=== PATIENT | male | born 1995 ===

== ENCOUNTER 2018-05-01 23:41 | Emergency (ER) | payer MEDICAID ==
[2018-05-01 23:46] VITALS: BP 146/86
--- NOTE | 2018-05-02 00:19 | EDPHY ---
H & P Stated Complaint: FLU LIKE SX FOR PAST DAY, WITH DIARRHEA Time Seen by Provider: 05/01/18 23:48 HPI/ROS: HPI The patient presents with diarrhea which has been present for the last 2 days. He has had loose stools throughout the day yesterday and today. These are nonbloody. He thought they were related to drinking alcohol because 2 nights ago he drink heavily. He complains of diffuse muscle aches which began today after playing about 8 hr of video games. He felt that he had a hard time catching his breath as well and when he breathes in his chest felt like it was burning. He does not have any shortness of breath currently. He does not have any chest pain or coughing. REVIEW OF SYSTEMS 10 systems were reviewed and negative with the exception of the elements mentioned in the history of present illness. PMHx: Healthy Soc Hx: Previous history of vaping which he has stopped over the last 3 weeks, here with his girlfriend PHYSICAL General Appearance: Alert, no distress Eyes: Pupils equal and round no pallor or injection ENT, Mouth: Mucous membranes moist Respiratory: There are no retractions, lungs are clear to auscultation Cardiovascular: Regular rate and rhythm Gastrointestinal: Abdomen is soft and non-tender, no masses, bowel sounds normal Neurological: A&O, moves all extremities Skin: Warm and dry, no rashes Musculoskeletal: Neck is supple non tender Extremities: symmetrical, full range of motion Psychiatric: Patient is oriented X 3, there is no agitation Source: Patient Exam Limitations: No limitations - Personal History Current Tetanus/Diphtheria Vaccine: Yes Current Tetanus Diphtheria and Acellular Pertussis (TDAP): Yes - Medical/Surgical History Hx Asthma: No Hx Chronic Respiratory Disease: No Hx Diabetes: No Hx Cardiac Disease: No Hx Renal Disease: No Hx Cirrhosis: No Hx Alcoholism: No Hx HIV/AIDS: No - Social History Smoking Status: Current every day smoker Constitutional: Initial Vital Signs Temperature (C) 37.5 C 05/01/18 23:43 Heart Rate 83 05/01/18 23:43 Respiratory Rate 18 05/01/18 23:43 Blood Pressure 146/86 H 05/01/18 23:43 O2 Sat (%) 97 05/01/18 23:43 O2 Delivery Mode Room Air Allergies/Adverse Reactions: No Known Allergies Allergy (Unverified 10/28/18 23:46) Home Medications: Medication Instructions Recorded NK [No Known Home Meds] 05/01/18 Medical Decision Making Differential Diagnosis: 23-year-old male with no past medical history presents with myalgias, transient shortness of breath, diarrhea for the last 2 days. On exam, vital signs normal , generally well-appearing. Abdominal exam is benign. He does not appear clinically dehydrated and in fact is able to eat dinner prior to coming to the emergency department. Basic labs were checked and the patient does have a leukocytosis with a left shift. I reexamined the patient and lungs continued to sound clear, he does not have any coughing. His abdominal exam is entirely benign. I suspect he is suffering from a viral gastroenteritis as cause of his symptoms. I have discussed return precautions to the emergency department. Have given him information for primary care because I think he should have a repeat CBC in the next 1-2 weeks when he is feeling better. He is in agreement with this plan. - Data Points Laboratory Results: Laboratory Results 05/02/18 00:25 05/02/18 00:25 05/02/18 05/02/18 00:25 00:25 WBC 18.26 10^3/uL H 10^3/uL (3.80-9.50) RBC 5.33 10^6/uL 10^6/uL (4.40-6.38) Hgb 15.9 g/dL g/dL (13.7-17.5) Hct 45.7 % % (40.0-51.0) MCV 85.7 fL fL (81.5-99.8) MCH 29.8 pg pg (27.9-34.1) MCHC 34.8 g/dL g/dL (32.4-36.7) RDW 12.7 % % (11.5-15.2) Plt Count 294 10^3/uL 10^3/uL (150-400) MPV 9.8 fL fL (8.7-11.7) Neut % (Auto) 86.8 % H % (39.3-74.2) Lymph % (Auto) 7.9 % L % (15.0-45.0) [place] % (Auto) 4.1 % L % (4.5-13.0) Eos % (Auto) 0.7 % % (0.6-7.6) Baso % (Auto) 0.2 % L % (0.3-1.7) Nucleat RBC Rel Count 0.0 % % (0.0-0.2) Absolute Neuts (auto) 15.84 10^3/uL H 10^3/uL (1.70-6.50) Absolute Lymphs (auto) 1.45 10^3/uL 10^3/uL (1.00-3.00) Absolute Monos (auto) 0.74 10^3/uL 10^3/uL (0.30-0.80) Absolute Eos (auto) 0.13 10^3/uL 10^3/uL (0.03-0.40) Absolute Basos (auto) 0.04 10^3/uL 10^3/uL (0.02-0.10) Absolute Nucleated RBC 0.00 10^3/uL 10^3/uL (0-0.01) Immature Gran % 0.3 % % (0.0-1.1) Immature Gran # 0.06 10^3/uL 10^3/uL (0.00-0.10) Sodium 140 mEq/L mEq/L (135-145) Potassium 4.0 mEq/L mEq/L (3.3-5.0) Chloride 103 mEq/L mEq/L (97-110) Carbon Dioxide 25 mEq/l mEq/l (22-31) Anion Gap 12 mEq/L mEq/L (6-14) BUN 18 mg/dL mg/dL (7-23) Creatinine 1.0 mg/dL mg/dL (0.7-1.3) Estimated GFR > 60 Glucose 131 mg/dL H mg/dL (70-100) Calcium 9.4 mg/dL mg/dL (8.5-10.4) Total Bilirubin 1.2 mg/dL mg/dL (0.1-1.4) AST 24 IU/L IU/L (17-59) ALT 29 IU/L IU/L (21-72) Alkaline Phosphatase 50 IU/L IU/L (38-126) Total Protein 7.4 g/dL g/dL (6.3-8.2) Albumin 4.5 g/dL g/dL (3.5-5.0) Departure - Departure Disposition: Home, Routine, Self-Care Clinical Impression: Myalgia Diarrhea Qualifiers: Diarrhea type: unspecified type Qualified Code(s): R19.7 - Diarrhea, unspecified Leukocytosis Qualifiers: Leukocytosis type: unspecified Qualified Code(s): D72.829 - Elevated white blood cell count, unspecified Condition: Good Instructions: Acute Diarrhea (ED) Additional Instructions: Please return to the emergency department if your worse in any way. Otherwise, make sure to drink plenty of fluids and get exercise every day. Your lab testing did show that your white blood cell count is high which is usually related to an infection. However, I would like for you to follow up with a primary care doctor in 1-2 weeks for recheck to make sure this is coming down. Referrals: Rosenda Locke MD [Medical Doctor] - As per Instructions Stand Alone Forms: School Excuse
[2018-05-02 01:05] LABS: PLATELET COUNT 294 10^3/uL (150-400)
== END 2018-05-02 01:37 | disposition home or self-care (01) ==
DX: R19.7 Diarrhea, unspecified (principal); D72.829 Elevated white blood cell count, unspecified; M79.10 Myalgia, unspecified site; F17.200 Nicotine dependence, unspecified, uncomplicated